=== PATIENT | male | born 1990 | race Caucasian/White ===

== ENCOUNTER → 2017-04-10 | Outpatient (CLI) | payer BC ==
[2017-04-10 14:37] LABS: Basophils # (auto) 0 uL; Basophils % (auto) 0.6 % (0.0-2.0); Eosinophils # (auto) 0 uL; Eosinophils % (auto) 0.4 % (0.0-7.0); Hematocrit 48.4 % (41.0-53.0); Hemoglobin 16.9 g/dL (13.5-17.5); Lymphocytes # (auto) 1.6 uL; Lymphocytes % (auto) 28.4 % (10.0-50.0); Mean Corpuscular Hemoglobin 33.2 pg (28.0-32.0); Mean Corpuscular Volume 94.8 fL (80.0-100.0); Monocytes # (auto) 0.5 uL; Monocytes % (auto) 8.3 % (0.0-12.0); Neutrophils # (auto) 3.5 uL; Neutrophils % (auto) 62.3 % (37.0-80.0); Nucleated Red Blood Cells % 0.1 %; Platelet Count (auto) 214 10^3/uL (140-450); Red Blood Cells 5.11 10^6/uL (4.5-5.90); Red Cell Distribution Width 13.1 % (11.8-14.3); White Blood Cell 5.6 10^3/uL (4.4-10.8)
[2017-04-10 15:10] LABS: Albumin 4.5 g/dL (3.4-5.0); BUN/Creatinine Ratio 12.8; Calcium 9.1 mg/dL (8.5-10.1); Magnesium 2.4 mg/dL (1.6-2.6); Potassium 3.8 mmol/L (3.5-5.1); Total Protein 7.8 g/dL (6.4-8.2); Uric Acid 4.8 mg/dL (3.5-7.2)
[2017-04-11 04:08] LABS: RPR Non Reactive (Non Reactive)
[2017-04-11 10:42] LABS: Hepatitis B Surface Antibody Positive
[2017-04-11 10:58] LABS: Hepatitis B Surface Antigen Negative (Negative)
[2017-04-11 11:16] LABS: Hepatitis B Core IgM Negative; Hepatitis C Antibody Negative (Negative)
[2017-04-11 11:17] LABS: Hepatitis A Total Antibody Positive
[2017-04-11 11:18] LABS: Hepatitis B Core Total AB Negative
== END | disposition home or self-care (01) ==
LOC: LAB 13:01
DX: R79.89 Other specified abnormal findings of blood chemistry (principal)
CPT/HCPCS: 36415; 80053; 80061; 82306; 82607; 83036; 83735; 84443; 84550; 85025; 86592; 86703; 86704; 86705; 86706; 86708; 86803; 87340

== ENCOUNTER 2018-04-26 18:47 | Emergency (ER) | payer BC, MEDICAID ==
[~2018-04-26] VITALS: Ht 167.6 cm; Wt 59.0 kg
[2018-04-26 19:16] VITALS: BP 126/81
== END 2018-04-26 21:59 | disposition home or self-care (01) ==
LOC: ER 18:47
DX: M54.2 Cervicalgia (principal); M62.838 Other muscle spasm; G44.209 Tension-type headache, unspecified, not intractable; V49.9XXA Car occupant (driver) (passenger) injured in unspecified traffic accident, initial encounter; Y93.89 Activity, other specified; Y92.488 Other paved roadways as the place of occurrence of the external cause; Y99.8 Other external cause status
CPT/HCPCS: 70450; 71250; 72125; 74176